=== PATIENT | female | born 1965 | race Caucasian/White ===

== ENCOUNTER 2020-04-14 18:04 | Observation (INO) ==
[2020-04-14] MEDS ORDERED: OPTIRAY 320 125ml IV ONE (18:21)
--- NOTE | 2020-04-14 18:21 | Emergency Department Note ---
History of Present Illness General Chief complaint: Stroke/CVA Symptoms Stated complaint: SLURRED SPEACH, LEFT SIDE WEAKNESS Time Seen by Provider: 04/14/20 18:11 Source: patient and family () Mode of arrival: ambulatory Limitations: no limitations History of Present Illness Maximum Pain Intensity: 0 This patient is a 55-year-old white female who comes in complaining of generalized weakness and malaise. She has had some neck pain and some numbness in her arm that are been going on for several weeks although at 8:00 this morning it was much worse. She laid in bed all day. Her thought her speech seemed more faint than normal. When they tried to walk at 5:00 this evening she seemed weaker than normal. The last known well was 8:00 this morning. She has had no fall or trauma. She is not diabetic. She tells me she had a similar episode was told she had a TIA several years ago. She is on any blood thinners. No chest pain or shortness of breath. No fever or chills. No COVID symptoms or exposure. She has been having some neck pain and she did finish her course of steroids about 2 days ago. She is also been on Ultram and a muscle relaxer though has not taken any today. She was adjusted by a chiropractor a couple days ago as well. No change in bowel or bladder function. After the CAT scan she tells me that her leg feels better than it was and has no numbness or weakness. No syncope. She tells me that she had a TIA about 3 years ago and had passed out at the time. Denies headache. She was recently treated for UTI as well and a rash Home Medications Home Medications Medication Instructions Recorded Confirmed Type omeprazole 40 mg capsule,delayed 40 mg PO QAM #30 cap 08/15/19 04/14/20 Rx release cyclobenzaprine 10 mg tablet 10 mg PO HS PRN #10 tab 04/08/20 04/14/20 Rx prednisone 50 mg tablet 50 mg PO DAILY #5 tab 04/08/20 04/14/20 Rx tramadol 50 mg tablet See Rx Instructions PO Q6H PRN #20 04/08/20 04/14/20 Rx tab Allergies Allergy/AdvReac Type Severity Reaction Status Date / Time doxylamine Allergy Unknown PT CAN'T Verified 04/14/20 19:38 REMEMBER Past Med/Surg History Medical History Acute bronchitis (Inactive) Cough (Inactive) Encounter for pre-operative examination GERD (gastroesophageal reflux disease) High blood pressure History of gastric ulcer Laryngitis (Inactive) Routine health maintenance (Inactive) Transient ischemic attack (TIA) 12/2016--stress induced--no meds Surgical History History of cholecystectomy History of colonoscopy History of esophagogastroduodenoscopy (EGD) History of tooth extraction wisdom teeth Family History Family/Other Breast cancer great grandmother Other Hypertension Denies family history of Ovarian cancer Prostate cancer Myocardial infarction Colorectal cancer Social History Smoking Status: Never smoker Second Hand Exposure: Yes (mother smoked); Hx Alcohol Use: Yes Alcohol type: wine Hx Substance Use: No Preferred Language: Niuean Communication Ability: Effective Sound Printer Required: No Beliefs That Will Affect Care: None marital status: Current Living Situation: Spouse current occupational status: employed Feels Safe at Home: Yes Safety Concerns: Feels Safe At This Time caffeine: Yes Dental Care, Regularly: Yes Physical Activity Frequency: 3-4 Times per Week Seatbelt Use: always Review of Systems A total of 10 systems reviewed and were otherwise negative Physical Exam Vital Signs Vital Signs - 24 hr 04/14/20 18:08 04/14/20 18:25 04/14/20 18:31 Temperature 36.7 C Temperature Source Oral Pulse Rate 72 66 Pulse Rate [Apical] 66 Pulse Rate from SpO2 Sensor 67 Respiratory Rate 20 18 Respiratory Effort / Characteristics Non-Labored Spontaneous Respiratory Depth Normal Blood Pressure 149/81 H Blood Pressure [Right Arm] 169/86 H Blood Pressure Mean 103 Blood Pressure Mean [Right Arm] 113 Pulse Oximetry 99 99 100 Oxygen Delivery Method Room Air Room Air Sepsis Recent Fever Within 48 Hours No Sepsis New/Unexplained Change in Mental Status N/A Sepsis Action Taken by Nursing No Action Required 04/14/20 18:32 04/14/20 18:40 04/14/20 18:45 Temperature Temperature Source Pulse Rate 62 61 60 Pulse Rate [Apical] Pulse Rate from SpO2 Sensor 62 61 61 Respiratory Rate Respiratory Effort / Characteristics Respiratory Depth Blood Pressure 169/86 H 166/86 H Blood Pressure [Right Arm] Blood Pressure Mean 108 108 Blood Pressure Mean [Right Arm] Pulse Oximetry 100 98 100 Oxygen Delivery Method Room Air Sepsis Recent Fever Within 48 Hours Sepsis New/Unexplained Change in Mental Status Sepsis Action Taken by Nursing 04/14/20 18:46 04/14/20 18:50 04/14/20 19:00 Temperature Temperature Source Pulse Rate 63 57 L Pulse Rate [Apical] 61 Pulse Rate from SpO2 Sensor 61 58 L Respiratory Rate 18 15 Respiratory Effort / Characteristics Respiratory Depth Blood Pressure Blood Pressure [Right Arm] 166/86 H Blood Pressure Mean Blood Pressure Mean [Right Arm] 112 Pulse Oximetry 100 100 98 Oxygen Delivery Method Room Air Sepsis Recent Fever Within 48 Hours Sepsis New/Unexplained Change in Mental Status Sepsis Action Taken by Nursing 04/14/20 19:10 04/14/20 19:20 04/14/20 19:30 Temperature Temperature Source Pulse Rate 61 67 58 L Pulse Rate [Apical] Pulse Rate from SpO2 Sensor 59 L 69 64 Respiratory Rate 15 20 20 Respiratory Effort / Characteristics Respiratory Depth Blood Pressure Blood Pressure [Right Arm] Blood Pressure Mean Blood Pressure Mean [Right Arm] Pulse Oximetry 99 99 99 Oxygen Delivery Method Sepsis Recent Fever Within 48 Hours Sepsis New/Unexplained Change in Mental Status Sepsis Action Taken by Nursing 04/14/20 19:34 04/14/20 19:35 04/14/20 19:40 Temperature Temperature Source Pulse Rate 62 65 58 L Pulse Rate [Apical] Pulse Rate from SpO2 Sensor 61 66 58 L Respiratory Rate 23 19 19 Respiratory Effort / Characteristics Respiratory Depth Blood Pressure 136/78 Blood Pressure [Right Arm] Blood Pressure Mean 97 Blood Pressure Mean [Right Arm] Pulse Oximetry 98 97 99 Oxygen Delivery Method Sepsis Recent Fever Within 48 Hours Sepsis New/Unexplained Change in Mental Status Sepsis Action Taken by Nursing 04/14/20 19:50 04/14/20 21:08 Temperature Temperature Source Pulse Rate 61 55 L Pulse Rate [Apical] Pulse Rate from SpO2 Sensor 64 Respiratory Rate 17 17 Respiratory Effort / Characteristics Respiratory Depth Blood Pressure 146/89 H Blood Pressure [Right Arm] Blood Pressure Mean 108 Blood Pressure Mean [Right Arm] Pulse Oximetry 97 Oxygen Delivery Method Sepsis Recent Fever Within 48 Hours Sepsis New/Unexplained Change in Mental Status Sepsis Action Taken by Nursing General: Well developed well nourished middle-aged female in no acute distress, breathing comfortably on room air. Normal speech HEENT: Normal cephalic atraumatic. Pupils are equal round and reactive to light. Extraocular movements are intact. Oropharynx is pink with moist mucous membranes. No swelling of the mouth lips or tongue. Neck: Supple with a midline trachea. No meningeal signs or stiffness, no JVD or bruits. No Stridor. Chest: Clear to auscultation bilaterally. No wheezes or rhonchi. No increased work of breathing. Heart: Regular rate and rhythm without murmurs or gallops. Abdomen: Soft nontender, nondistended without rebound guarding or rigidity. Extremities: No cyanosis clubbing or edema. No calf tenderness or assymetry Spine/Back. Non tender to palpation. No CVA tenderness Skin: Good turgor without rashes. Neurologic exam: Cranial nerves two through 12 are intact. Motor and sensation are intact and symmetrical throughout. She complains of some mild numbness to left arm but has normal full movement. No numbness or weakness the left leg. Course Administered Medications Discontinued Medications Aspirin (Aspirin Chew) 324 mg PO NOW STA Stop: 04/14/20 18:53 Last Admin: 04/14/20 19:01 Dose: 324 mg Documented by: [id number] Sodium Chloride (Nss 1000ml) 1,000 mls @ 125 mls/hr IV .Q8H JEREMIAS Stop: 05/14/20 18:59 Last Infusion: 04/14/20 22:57 Dose: 0 mls/hr Documented by: [id number] Admin: 04/14/20 19:47 Dose: 125 mls/hr Documented by: [id number] Ioversol (Optiray 320 125ml) 119 ml IV ONCE ONE Stop: 04/14/20 18:22 Last Admin: 04/14/20 18:21 Dose: 119 ml Documented by: [id number] Critical Care Time Critical Care Time: Yes Total Critical Care Time: 30 Due to the patient's presentation with strokelike symptoms and need for frequent reassessment, consultation with the stroke neurologist consideration for TPA and intervention and other measures, she was reassessed frequently and placed on a monitored bed and a total of 30 minutes of critical care time was performed. Medical Decision Making Differential Diagnosis Stroke, TIA, infection, electrolyte or metabolic abnormalities, intracranial process, cervical spine disease, Medical Records Attestation: I reviewed the patient's medical records. Home Medications Current Medication List: was personally reviewed by me Laboratory Data Attestation: I reviewed the patient's lab results. Result diagrams: 04/14/20 18:32 04/14/20 18:32 Lab Results 04/14/20 04/14/20 04/14/20 Range/Units 18:32 18:32 18:32 WBC 8.75 (4.8-10.8) K/uL RBC 4.28 (4.2-5.4) M/uL Hgb 14.0 (12.0-16.0) g/dL Hct 40.9 (37-47) % MCV 95.6 (80-100) fL MCH 32.7 (25-34) pg MCHC 34.2 (32-36) g/dL RDW Std Deviation 42.9 (36.4-46.3) fL RDW Coeff of Michael 12.3 (11.5-14.5) % Plt Count 302 (130-400) K/uL MPV 10.9 H (7.4-10.4) fL Immature Gran % (Auto) 0.2 % Neut % (Auto) 45.2 % Lymph % (Auto) 45.9 % [place] % (Auto) 7.1 % Eos % (Auto) 1.4 % Baso % (Auto) 0.2 % Neut # (Auto) 3.95 (1.4-6.5) K/uL Lymph # (Auto) 4.02 H (1.2-3.4) K/uL [place] # (Auto) 0.62 H (0.11-0.59) K/uL Eos # (Auto) 0.12 (0-0.5) K/uL Baso # (Auto) 0.02 (0-0.2) K/uL Immature Gran # (Auto) 0.02 (0.00-0.02) K/uL PT 10.8 (9.0-12.0) Seconds INR 1.0 (0.9-1.1) APTT 28.5 (21.0-31.0) Seconds PTT Ratio 1.0 Sodium 135 L (136-145) mmol/L Potassium 3.8 (3.5-5.1) mmol/L Chloride 101 (98-107) mmol/L Carbon Dioxide 27 (21-32) mmol/L Anion Gap 6.0 (3-11) BUN 14 (7-18) mg/dl Creatinine 1.21 H (0.6-1.2) mg/dl Est Cr Clr Drug Dosing 52.2 ml/min Est GFR ( Amer) 59.2 Est GFR (Non-Af Amer) 51.0 BUN/Creatinine Ratio 11.7 (10-20) Glucose 91 (70-99) mg/dl POC Glucose (70-99) mg/dl Calcium 8.6 (8.5-10.1) mg/dl Magnesium 2.1 (1.8-2.4) mg/dl Total Bilirubin 0.3 (0.2-1) mg/dl AST 14 L (15-37) U/L ALT 23 (12-78) U/L Alkaline Phosphatase 48 (45-117) U/L Troponin I < 0.015 (0-0.045) ng/ml Total Protein 6.6 (6.4-8.2) gm/dl Albumin 3.4 (3.4-5.0) gm/dl Globulin 3.2 (2.5-4.0) gm/dl Albumin/Globulin Ratio 1.1 (0.9-2) Lyme Disease IgG Ab (Negative) Lyme Disease IgM Ab (Negative) 04/14/20 04/14/20 Range/Units 18:33 18:50 WBC (4.8-10.8) K/uL RBC (4.2-5.4) M/uL Hgb (12.0-16.0) g/dL Hct (37-47) % MCV (80-100) fL MCH (25-34) pg MCHC (32-36) g/dL RDW Std Deviation (36.4-46.3) fL RDW Coeff of Michael (11.5-14.5) % Plt Count (130-400) K/uL MPV (7.4-10.4) fL Immature Gran % (Auto) % Neut % (Auto) % Lymph % (Auto) % [place] % (Auto) % Eos % (Auto) % Baso % (Auto) % Neut # (Auto) (1.4-6.5) K/uL Lymph # (Auto) (1.2-3.4) K/uL [place] # (Auto) (0.11-0.59) K/uL Eos # (Auto) (0-0.5) K/uL Baso # (Auto) (0-0.2) K/uL Immature Gran # (Auto) (0.00-0.02) K/uL PT (9.0-12.0) Seconds INR (0.9-1.1) APTT (21.0-31.0) Seconds PTT Ratio Sodium (136-145) mmol/L Potassium (3.5-5.1) mmol/L Chloride (98-107) mmol/L Carbon Dioxide (21-32) mmol/L Anion Gap (3-11) BUN (7-18) mg/dl Creatinine (0.6-1.2) mg/dl Est Cr Clr Drug Dosing ml/min Est GFR ( Amer) Est GFR (Non-Af Amer) BUN/Creatinine Ratio (10-20) Glucose (70-99) mg/dl POC Glucose 98 (70-99) mg/dl Calcium (8.5-10.1) mg/dl Magnesium (1.8-2.4) mg/dl Total Bilirubin (0.2-1) mg/dl AST (15-37) U/L ALT (12-78) U/L Alkaline Phosphatase (45-117) U/L Troponin I (0-0.045) ng/ml Total Protein (6.4-8.2) gm/dl Albumin (3.4-5.0) gm/dl Globulin (2.5-4.0) gm/dl Albumin/Globulin Ratio (0.9-2) Lyme Disease IgG Ab Negative (Negative) Lyme Disease IgM Ab Negative (Negative) Imaging Data Radiologist's Impression: CT head/brain wo con CLINICAL HISTORY: Strokelike symptoms COMPARISON STUDY: No previous studies for comparison. TECHNIQUE: Axial CT of the brain is performed from the vertex to the skull base. IV contrast was not administered for this examination. A dose lowering technique was utilized adhering to the principles of ALARA. CT DOSE: FINDINGS: No intra or extra-axial mass lesions are visualized. There is no CT evidence of acute cortical infarction. There is no evidence of midline shift. There is no acute hemorrhage. No calvarial fractures are visualized. There is no evidence of pathologic ventricular dilatation. There is no evidence of acute sinusitis IMPRESSION: No acute intracranial findings CT angio neck with con CLINICAL HISTORY: Strokelike symptoms COMPARISON STUDY: No previous studies for comparison. TECHNIQUE: CT angiography was performed from the aortic arch to the skull base. MIP imaging was performed. The patient was scanned in a dynamic helical fashion during intravenous administration of 119 cc of Optiray 320. A dose lowering technique was utilized adhering to the principles of ALARA. CT DOSE: Technique: CT angiogram of the carotid and vertebral arteries was obtained using intravenous contrast and 3-D reconstruction. NASCET criteria was utilized. Findings: Incidentally noted is a 4 mm right lobe thyroid nodule. Current recommendations indicate no necessity of follow-up. Average risk patient. The right carotid revealed no evidence of aneurysm and no evidence of dissection. There is no evidence of hemodynamic significant stenosis. The left carotid revealed no evidence of hemodynamic significant stenosis. There is no evidence of aneurysm. There is no evidence of dissection. There is no evidence of hemodynamically significant vertebral stenosis. There is no evidence of vertebral dissection. IMPRESSION: No evidence of hemodynamically significant carotid or vertebral artery stenosis. No evidence of dissection. CT angio head w con CLINICAL HISTORY: Strokelike symptoms TECHNIQUE: CT angiography of the head was performed in a dynamic helical fashion during intravenous administration of 119 cc of Optiray 320. MIP imaging was performed. A dose lowering technique was utilized adhering to the principles of ALARA. CT DOSE: COMPARISON STUDY: No previous studies for comparison. FINDINGS: There are no lesion suspicious for aneurysm. There are no major intracranial branch occlusions. The dural venous sinuses appear patent.. There is a somewhat hypoplastic left A1 segment. This is felt to be developmental. IMPRESSION: Unremarkable CT angiography the brain. ECG Data Attestation: I personally reviewed and interpreted this ECG as follows: Indication: + weakness Rate (beats per minute): 64 Rhythm: + normal sinus ECG Intervals/blocks: + Normal QRS, + Normal QT and + Normal [place] ECG [place]: + Normal ECG ST segments: + Normal ST segments ECG Findings: no PACs and no PVCs Comparison ECG Date: no prior available Blood Pressure Blood Pressure Findings: Elevated blood pressure Blood Pressure Disposition: elevated BP felt to be situational MDM Narrative This patient comes in with generalized weakness. Starting at 8:00 this morning her left arm was much more weak and numb than normal. She also has some difficulty ambulating this evening. She has not felt well for couple days. No fever or chills. Given her symptoms a stroke alert was called. She was taken from triage to the CAT scan her. I briefly looked at her and talk to her in triage. She is not diabetic and she is not on no blood thinners. Her leg is feeling better after the CAT scan. Initial CAT scan was unremarkable. She also do CTA of the head and neck. Given that she was manipulated by chiropractor to make sure there was under that dissection as well. I did discuss the case with Dr. Boucher, the [facility] neurologist, as I called a stroke alert on this patient and talk to her early while the patient was over in CAT scan. She did evaluate her in the emergency department as well. Stroke neurologist does not feel that she needs TPA I agree. It is difficult to say whether this is a TIA/stroke or another nonischemic cause such as disc disease or even something like MS. She has no significant lecture light or metabolic abnormalities. She has nothing to suggest that she has cardiac disease. She was given normal saline IV bolus, and IV fluid while she was here. The stroke neurologist did recommend getting MRIs of the head and neck and doing further work-up. She was also recommended aspirin which was given here as well. She will be admitted/observed for further neurologic work-up. I have consulted the hospitalist for this. Continuous cardiac monitoring: Due to strokelike symptoms she was placed on a continuous live truck technician and order was placed in the electronic medical re cord. She was noted to be in normal sinus rhythm pulse of 72. Impression & Plan Weakness, Stroke-like symptoms, Left arm numbness, Cervical disc disease Discharge Plan Visit Data *Final* Discharge Date/Time: 04/14/20 22:11 Chief Complaint: Stroke/CVA Symptoms Stated Complaint: SLURRED SPEACH, LEFT SIDE WEAKNESS ED Provider: Rudi Park Discharge Problem: Weakness, Stroke-like symptoms, Left arm numbness, Cervical disc disease Patient Disposition: Admitted As Inpatient Discharge Instructions Interventions: ED Discharge Assessment Last Done: 04/14/20 22:11
--- NOTE | 2020-04-14 18:23 | CT Scan Report ---
CT head/brain wo con CLINICAL HISTORY: Strokelike symptoms COMPARISON STUDY: No previous studies for comparison. TECHNIQUE: Axial CT of the brain is performed from the vertex to the skull base. IV contrast was not administered for this examination. A dose lowering technique was utilized adhering to the principles of ALARA. CT DOSE: FINDINGS: No intra or extra-axial mass lesions are visualized. There is no CT evidence of acute cortical infarc tion. There is no evidence of midline shift. There is no acute hemorrhage. No calvarial fractures ar e visualized. There is no evidence of pathologic ventricular dilatation. There is no evidence of acute sinusitis IMPRESSION: No acute intracranial findings ACT 112: Negative or not required by law. Electronically signed by: Hemal De Anda M.D. 04/14/2020 6:22 PM
--- NOTE | 2020-04-14 18:40 | CT Scan Report ---
CT angio neck with con CLINICAL HISTORY: Strokelike symptoms COMPARISON STUDY: No previous studies for comparison. TECHNIQUE: CT angiography was performed from the aortic arch to the skull base. MIP imaging was perfo rmed. The patient was scanned in a dynamic helical fashion during intravenous administration of 119 c c of Optiray 320. A dose lowering technique was utilized adhering to the principles of ALARA. CT DOSE: Technique: CT angiogram of the carotid and vertebral arteries was obtained using intravenous contrast and 3-D reconstruction. NASCET criteria was utilized. Findings: Incidentally noted is a 4 mm right lobe thyroid nodule. Current recommendations indicate no necessity of follow-up. Average risk patient. The right carotid revealed no evidence of aneurysm and no evidence of dissection. There is no evidenc e of hemodynamic significant stenosis. The left carotid revealed no evidence of hemodynamic significant stenosis. There is no evidence of an eurysm. There is no evidence of dissection. There is no evidence of hemodynamically significant vertebral stenosis. There is no evidence of verte bral dissection. IMPRESSION: No evidence of hemodynamically significant carotid or vertebral artery stenosis. No evidence of disse ction. ACT 112: Negative or not required by law. Electronically signed by: Hemal De Anda M.D. 04/14/2020 6:39 PM
[2020-04-14 18:41] LABS: Basophils # (auto) 0.02 K/uL (0-0.2); Basophils % (auto) 0.2 %; Eosinophils # (auto) 0.12 K/uL (0-0.5); Eosinophils % (auto) 1.4 %; Hematocrit (blood only) 40.9 % (37-47); Immature Granulocytes # (auto) 0.02 K/uL (0.00-0.02); Immature Granulocytes % (auto) 0.2 %; Lymphocytes # (auto) 4.02 K/uL (1.2-3.4); Lymphocytes % (auto) 45.9 %; Mean Corpuscular Hemoglobin 32.7 pg (25-34); Mean Corpuscular Hgb Conc 34.2 g/dL (32-36); Mean Corpuscular Volume 95.6 fL (80-100); Mean Platelet Volume 10.9 fL (7.4-10.4); Monocytes # (auto) 0.62 K/uL (0.11-0.59); Monocytes % (auto) 7.1 %; Neutrophils # (auto) 3.95 K/uL (1.4-6.5); Neutrophils % (auto) 45.2 %; Platelet Count 302 K/uL (130-400); RDW Coefficient of Variation 12.3 % (11.5-14.5); RDW Standard Deviation 42.9 fL (36.4-46.3); Red Blood Count 4.28 M/uL (4.2-5.4); White Blood Count 8.75 K/uL (4.8-10.8)
--- NOTE | 2020-04-14 18:43 | CT Scan Report ---
CT angio head w con CLINICAL HISTORY: Strokelike symptoms TECHNIQUE: CT angiography of the head was performed in a dynamic helical fashion during intravenous a dministration of 119 cc of Optiray 320. MIP imaging was performed. A dose lowering technique was util ized adhering to the principles of ALARA. CT DOSE: COMPARISON STUDY: No previous studies for comparison. FINDINGS: There are no lesion suspicious for aneurysm. There are no major intracranial branch occlusi ons. The dural venous sinuses appear patent.. There is a somewhat hypoplastic left A1 segment. This i s felt to be developmental. IMPRESSION: Unremarkable CT angiography the brain. ACT 112: Negative or not required by law. Electronically signed by: Hemal De Anda M.D. 04/14/2020 6:42 PM
[2020-04-14 18:51] LABS: Partial Thromboplastin Time 28.5 Seconds (21.0-31.0); Prothrombin Time 10.8 Seconds (9.0-12.0)
[2020-04-14] MEDS ORDERED: ASPIRIN 81 MG CHEW PO STA (18:52)
[2020-04-14 18:57] LABS: Alanine Aminotransferase 23 U/L (12-78); Albumin Level 3.4 gm/dl (3.4-5.0); Aspartate Aminotransferase 14 U/L (15-37); BUN Creatinine Ratio 11.7 (10-20); Blood Urea Nitrogen 14 mg/dl (7-18); Calcium 8.6 mg/dl (8.5-10.1); Carbon Dioxide 27 mmol/L (21-32); Chloride 101 mmol/L (98-107); Creatinine Clr Calc Pharmacy 52.2 ml/min; Est GFR (African American) 59.2; Glucose 91 mg/dl (70-99); Magnesium 2.1 mg/dl (1.8-2.4); Potassium 3.8 mmol/L (3.5-5.1); Sodium 135 mmol/L (136-145)
[2020-04-14] MEDS ORDERED: SODIUM CHLORIDE 0.9% 1000ML 1,000 ML IV SCH (19:00)
[2020-04-14 19:02] LABS: Albumin Globulin Ratio 1.1 (0.9-2); Alkaline Phosphatase 48 U/L (45-117); Bilirubin,Total 0.3 mg/dl (0.2-1); Globulin 3.2 gm/dl (2.5-4.0); Total Protein 6.6 gm/dl (6.4-8.2); Troponin I < 0.015 ng/ml (0-0.045)
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
[2020-04-14] MEDS ORDERED: ACETAMINOPHEN 325 MG TAB PO PRN (22:43)
[2020-04-14] MEDS ORDERED: ONDANSETRON INJ 2 MG/ML 2 ML VIAL IV PRN (22:43)
[2020-04-14] MEDS ORDERED: ALUMINUM/MAGNESIUM SUSP 30 ML UDC PO PRN (22:43)
[2020-04-14] MEDS ORDERED: PHARMACIST DISCHARGE MED REC CONSULT PRN (22:43)
[2020-04-14 23:27] LABS: Lyme Ab IgG w/WB Rflx Negative (Negative); Lyme Ab IgM w/WB Rflx Negative (Negative)
--- NOTE | 2020-04-14 23:32 | Billing Data ---
Date of Service April 14, 2020 Coding Level of Care Code 69196 Initial Inpt Care Lvl 2
[2020-04-15 04:23] LABS: Appearance Urine Clear (Clear); Bacteria Urine Automated 4+ (Negative); Bilirubin Urine Negative (Negative); Blood Urine Negative (Negative); Cast Urine Automated 0 /lpf (0-5); Color Urine Yellow; Glucose Urine UA Negative (Negative); Ketones Urine Negative (Negative); Leukocyte Esterase Urine Trace (Negative); Nitrite Urine Negative (Negative); Protein Urine Negative (Negative); RBC Urine Automated 0-4 /hpf (0-4); Specific Gravity Urine 1.023 (1.000-1.030); Urobilinogen Urine Negative (Negative); pH Urine 6.5 (4.5-7.5)
[2020-04-15] MEDS ORDERED: GADOBUTROL 65ML VIAL IV ONE (06:09)
--- NOTE | 2020-04-15 07:21 | Magnetic Resonance Report ---
MRI OF THE BRAIN COMBO CLINICAL HISTORY: Strokelike symptoms. COMPARISON STUDY: CT of the brain dated 04/14/2020. TECHNIQUE: MRI of the brain was performed utilizing various T1 and T2-weighted sequences in the axial , sagittal, and coronal planes. Contrast-enhanced sequences were acquired following the administratio n of 7.4 cc of Gadavist. The examination is performed using the multiple sclerosis protocol. FINDINGS: Brain parenchyma: The brain parenchyma is normal in appearance. There is no hemorrhage or mass effect . There is no restricted diffusion to suggest acute ischemia. No enhancing mass lesion is identified on the postcontrast images. Medina-white matter differentiation is preserved. No extra-axial fluid ashley ection is seen. The cerebellar tonsils are normal in configuration. Ventricles, sulci, and cisterns: Normal in configuration. Pituitary and sella: Unremarkable. Intracranial vasculature: Normal flow voids are maintained at the skull base. Orbits: The bony orbits are grossly intact. Orbital contents are normal in appearance. Sinuses and mastoids: Clear. Calvarium: Unremarkable. Cervical cord: Partially visualized cervical spinal cord is normal in morphology and signal intensity . IMPRESSION: No acute intracranial abnormality. ACT 112: Negative or not required by law. Electronically signed by: Ney Smith M.D. 04/15/2020 7:19 AM
--- NOTE | 2020-04-15 07:28 | Magnetic Resonance Report ---
MR cervical spine wo/w con HISTORY: Mental status change stroke work up, concern for MS TECHNIQUE: Multiplanar multisequence MRI of the cervical spine was performed both before and after th e use of intravenous contrast. COMPARISON STUDY: None. FINDINGS: Signal characteristics of the vertebral bodies are unremarkable. Mild degenerative disc sukhjinder nge is noted throughout. Signal characteristics of the cervical cord are within normal limits. Veneer Drier Tailer ior bulging disc components are seen at C4-C5 and C6-C7. C2-C3: No significant central canal or neural foraminal narrowing. C3-C4: No significant central canal or neural foraminal narrowing. C4-C5: Mild broad-based disc bulge. Minimal impact anterior cervical cord. Moderate narrowing right a s well as left neural foramina. C5-C6: Minimal broad-based disc bulge. No impact of the cervical cord. C6-C7: Broad-based central disc herniation. Minimal impact anterior cervical cord. Neural foramina re main patent. C7-T1: No significant central canal or neural foraminal narrowing. IMPRESSION: 1. Mild broad-based disc herniation C6-C7 with minimal impact upon the anterior cervical cord. 2. Mild broad-based disc bulge C4-C5 with moderate narrowing of the right and to a lesser extent left neural foramina. 3. Normal signal characteristics of the cervical cord. 4. No abnormal postcontrast enhancement ACT 112: Negative or not required by law. The above report was generated using voice recognition software. It may contain grammatical, syntax or spelling errors. Electronically signed by: Allan Bishop M.D. 04/15/2020 7:26 AM
[2020-04-15 08:41] LABS: Basophils # (auto) 0.01 K/uL (0-0.2); Basophils % (auto) 0.1 %; Eosinophils # (auto) 0.09 K/uL (0-0.5); Eosinophils % (auto) 1.2 %; Hematocrit (blood only) 43.1 % (37-47); Hemoglobin 15.2 g/dL (12.0-16.0); Immature Granulocytes # (auto) 0.01 K/uL (0.00-0.02); Immature Granulocytes % (auto) 0.1 %; Lymphocytes % (auto) 25.9 %; Mean Corpuscular Hemoglobin 33.3 pg (25-34); Mean Corpuscular Hgb Conc 35.3 g/dL (32-36); Mean Corpuscular Volume 94.5 fL (80-100); Mean Platelet Volume 11.1 fL (7.4-10.4); Monocytes # (auto) 0.81 K/uL (0.11-0.59); Monocytes % (auto) 10.5 %; Neutrophils # (auto) 4.79 K/uL (1.4-6.5); Neutrophils % (auto) 62.2 %; Platelet Count 291 K/uL (130-400); RDW Coefficient of Variation 12.3 % (11.5-14.5); RDW Standard Deviation 42.1 fL (36.4-46.3); Red Blood Count 4.56 M/uL (4.2-5.4); White Blood Count 7.71 K/uL (4.8-10.8)
[2020-04-15] MEDS ORDERED: ASPIRIN 81 MG ECTAB PO SCH (09:00)
[2020-04-15 09:10] LABS: BUN Creatinine Ratio 12.7 (10-20); Calcium 9.3 mg/dl (8.5-10.1); Creatinine Clr Calc Pharmacy 61.6 ml/min; Est GFR (African American) 72.7; Est GFR (Non-African American) 62.8
[2020-04-15 09:44] LABS: Estimated Average Glucose 105 mg/dl; Hemoglobin A1C 5.3 % (4.5-5.6)
--- NOTE | 2020-04-15 10:25 | Medical Student Progress Note ---
Date of Service April 15, 2020 Assessment & Plan (1) Weakness: Assessment: Mrs. Wagner is a 55-year-old female with a history of HTN, GERD, and TIA in 2017 who presented yesterday, 04/14, to the ED with concerns of left-sided weakness who is now hospitalization day #1 for work-up of stroke-like symptoms. Left upper extremity weakness Head CT: No acute intracranial findings. Neck CTA: No evidence of hemodynamically significant carotid or vertebral ar jaylyn stenosis. No evidence of dissection. Head CTA: Unremarkable CT angiography the brain. Brain MRI: No acute intracranial abnormality. -Cervical MRI: Mild broad-base herniation of C6-C7 with a minimal impact on the anterior cervical cord; Mild C4-C5 disc bulge with moderate narrowing of the right and less so left neural foramina. - Given these findings, as well as timing of the attack and lack of facial symptoms, this is likely not a cardiovascular event. Lyme serology negative. - No metabolic derangements appreciated. - Given results of imaging, muscular tenderness, and later onset of radicular symptoms, this is most likely an MSK strain with a superimposed radiculopathy as a result of chiropractic adjustment. Given lack of CVA and the fact that lipid and A1c are in range with a ASCVD 10- year risk of 1.8%, ASA should be discontinued and there is no need for statin therapy at this time. Patient should hold tramadol at home and only utilize cyclobenzaprine as needed. Utilize acetaminophen and ibuprofen as well as ice for symptomatic relief. - Follow up with PCP and PT as an outpatient. Appreciate neurology consult. FEN/GI: Heart healthy diet. Patient passed bedside swallow DVT prophylaxis: Deferring any chemoprophylaxis, SCDs Full code Dispo: D/C Supervising Attestation I personally examined the patient and verified all jean-baptiste points of history and exam, discussed case, and agree with decision making with Gopi Sandoval MS3. see discharge summary, otherwise as above Subjective Ms. Wagner did well overnight. She is at baseline in terms of mental status but continues to have concerns of left-sided neck pain and loss of sensation in the first 3 fingers of the left hand. She describes this as a sensation of her hand being 'swollen.' She is otherwise feeling well and her malaise and fatigue is much improved since yesterday, 8/2. She is ambulating well. She has no concerns in terms of urination, defecation, or alimentation. Review of Systems Review of Systems: All systems reviewed & are unremarkable except as noted in HPI & below Physical Exam Constitutional: WD/WN, vitals as above well developed, well nourished, well groomed and comfortable Eyes: PERRL, conjunctivae normal, anicteric sclerae ENMT: external ear and nose normal, oropharynx normal Neck: normal visual inspection and trachea midline Respiratory: normal respiratory effort, lungs clear to auscultation no cough Cardiovascular: RRR, no murmur, no edema Heart Sounds: normal S1 and normal S2 Extremities: normal capillary refill; no edema Chest (Breasts): Additional Comments: Not examined. Gastrointestinal (Abdomen): normal bowel sounds, soft, nontender, no hepatosplenomegaly Musculoskeletal: Head/Neck/Chest: normocephalic and head atraumatic Spine: + paraspinal tenderness Extremities: + abnormal strength (Strength diffusely reduced in the the left upper extremity to 4/5); full ROM of extremities Gait: normal gait No edema or erythema of the hands. Tenderness of the L trapezius. Skin: no rashes, warm and dry Neurologic: CN's II-XI intact bilaterally, deep tendon reflexes 2+ bilaterally, moves all extremities and awake; no focal motor deficits and not confused Speech / Cognition: normal speech Motor/Sensory: + sensory deficit (reduced sensation to light touch over the first three digits of the L hand) Coordination: normal rapid alternating movements Psychiatric: A+Ox3, euthymic affect Genitourinary: Not examined. Results & Data ([facility]) Vital Signs (Past 12 Hours) Vital Signs Temp Pulse Pulse Resp BP Pulse Ox 04/15/20 02:00 48 L 04/14/20 23:59 36.5 C 52 L 18 142/82 H 97 04/14/20 22:37 36.6 C 100 H 16 156/81 H 96 Telemetry: HR in the 50s-70s overnight with a minimum of 39 bpm. Today HR: 50- 80s. No arrhythmias appreciated. Pertinent Labs: Na+: 137 Cr: 1.02 HbA1c: 5.3 Cholesterol: 206 Triglycerides: 100 LDL: 122 HDL: 64 Lyme Serology: Negative Imaging: Head CT: No acute intracranial findings Neck CTA: No evidence of hemodynamically significant carotid or vertebral artery stenosis. No evidence of dissection Head CTA: Unremarkable CT angiography the brain Brain MRI: No acute intracranial abnormality. Cervical MRI: Mild broad-base herniation of C6-C7 with a minimal impact on the anterior cervical cord; Mild C4-C5 disc bulge with moderate narrowing of the right and less so left neural foramina. Echo: Normal left ventricular systolic function, no significant valvular dysfunction. Patent foramen ovale present.
--- NOTE | 2020-04-15 13:09 | Neurology Consultation ---
Date of Consultation April 15, 2020 Assessment & Plan (1) Stroke-like symptoms: James Wagner is a 55 yo woman w/ PMH of GERD, HTN and possible TIA in 2017 in the setting of severe stress who p/t [facility] after acute onset of generalized weakness, malaise, hypophonia, worsening left sided weakness and slurred speech. # Stroke-like symptoms: All symptoms resolved at this time except for ongoing neck pain and tingling in her left hand. Believe that her tingling is most likely due to mild neuroforaminal stenosis seen on her MRI C-spine. The overall lethargy and generalized weakness is likely due to UTI given her symptoms and urinalysis. -Recommend treating UTI per primary team -Recommend outpatient physical therapy for her neck pain associated with radicular symptoms in her left hand -If no improvement of her left hand symptoms with PT, can be seen again in the neurology clinic and consider treatment with gabapentin or Cymbalta #Hypertension: Has been persistently hypertensive since admission. Recommend starting antihypertensive such as lisinopril. Given echo findings, she may want to start with a baby aspirin 81 mg daily as well. Thank you for this interesting consult. Plan of care discussed with primary team. Please call or text with questions. (2) Left arm numbness: (3) Cervical disc disease: History of Present Illness Attending Physician: Eulalio Anton DO History of Present Illness James Wagner is a 55 yo woman w/ PMH of GERD, HTN and possible TIA in 2017 in the setting of severe stress who p/t [facility] after acute onset of generalized weakness, malaise, hypophonia, worsening left sided weakness and slurred speech. Last seen well 8 AM on 04/14/2020. In the ED, she was afebrile, BP 149/81, heart rate 72, respiratory rate 20, satting 99% on room air. Labs notable for WBC 8.75, hemoglobin 14, platelets 302, sodium mildly low at 135, potassium 3.8, creatinine mildly elevated at 1.21, glucose 91, INR 1.0, calcium/magnesium within normal, LFTs within normal, troponin negative, Lyme negative. UA showed 4+ bacteria, 10-30 whites, trace leukoesterase, negative nitrites and 10-20 epithelial cells; urine culture pending. Imaging independently reviewed. CT head shows no hemorrhage or hypodensity. CTA head and neck shows no LVO, high-grade stenosis or aneurysm; incidentally noted hypoplastic left cervical ICA. MRI brain shows no acute or chronic infarcts, Chiari malformation, tumor or significant small vessel disease. MRI cervical spine shows mild disc herniations at C4-C5 and C6-C7 with no significant cervical stenosis and moderate neuroforaminal stenosis noted bilaterally at C4-C5. Echo showed EF 50 to 55%, grade 1 diastolic dysfunction, no significant valvular abnormalities, PFO present. On examination today, she reports that her symptoms have significantly improved. She reports that she has not been feeling well for the last few days and noticed increased urinary frequency and urgency. She has had neck pain for about the last 6 weeks and has seen a chiropractor for it without significant improvement. Notes that she has had numbness and tingling predominantly in her left hand third through fifth digits. Yesterday, she reports that she was overall lethargic, ate only breakfast on rest and the rest of the day and was concerned given history of possible TIA in the past, prompting presentation to the hospital. Allergies Allergy/AdvReac Type Severity Reaction Status Date / Time doxylamine Allergy Unknown PT CAN'T Verified 04/14/20 19:38 REMEMBER Home Medications Home Medications Medication Instructions Recorded Confirmed Type omeprazole 40 mg capsule,delayed 40 mg PO QAM #30 cap 08/15/19 04/14/20 Rx release cyclobenzaprine 10 mg tablet 10 mg PO HS PRN #10 tab 04/08/20 04/14/20 Rx prednisone 50 mg tablet 50 mg PO DAILY #5 tab 04/08/20 04/14/20 Rx tramadol 50 mg tablet See Rx Instructions PO Q6H PRN #20 04/08/20 04/14/20 Rx tab Patient History Medical History Acute bronchitis (Inactive) Cough (Inactive) Encounter for pre-operative examination GERD (gastroesophageal reflux disease) High blood pressure History of gastric ulcer Laryngitis (Inactive) Routine health maintenance (Inactive) Transient ischemic attack (TIA) 12/2016--stress induced--no meds Surgical History History of cholecystectomy History of colonoscopy History of esophagogastroduodenoscopy (EGD) History of tooth extraction wisdom teeth Family History Family/Other Breast cancer great grandmother Other Hypertension Denies family history of Ovarian cancer Prostate cancer Myocardial infarction Colorectal cancer Social History Smoking Status: Never smoker Second Hand Exposure: Yes (mother smoked); Hx Alcohol Use: Yes Alcohol type: wine Hx Substance Use: No Preferred Language: [place] Communication Ability: Effective 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 Exam (Neuro) Physical Exam: General Exam: GEN: NAD, sitting in chair. HEENT: No conjunctival injection, no rhinorrhea. CV: RRR, no peripheral edema PULM: Nonlabored respirations on room air. Neuro Exam: MS: Awake and Alert. Oriented to person, place, and date. Speech fluent and appropriate without dysarthria or paraphasic errors. Language intact including naming, comprehension, repetition. Cognition and memory grossly intact. Attention intact. No neglect. CN: Visual ramirez full. No extinction to double simultaneous stimuli. No optic disc edema on fundoscopic exam. PERRLA OU. EOMI without nystagmus. Facial sensation intact to LT. Facial muscles full and symmetric. Hearing intact to conversation. Uvula midline with symmetric palatal elevation. Shoulder shrug normal. Tongue midline. MOTOR: Normal bulk and tone. No pronator drift. BUE strength 5/5 at deltoids, biceps, triceps, wrist flexors and extensors, and hand grasp bilaterally. BLE strength 5/5 at iliopsoas, hamstrings, quadriceps, tibialis anterior, and gastrocnemius bilaterally. REFLEXES: 2+ at biceps, triceps, brachioradialis, 2+ patella and 1+ Achilles bilaterally. Flexor plantar responses bilaterally. SENSORY: Intact to LT without extinction to double simultaneous stimuli. Vibration intact throughout. COORDINATION: No dysmetria or ataxia on kjorrk-lx-jifx and ntle-vo-rcqx bilaterally. Normal Tr bilaterally. GAIT: Deferred given physical status Results & Data ([facility]) Vital Signs (Past 12 Hours) Vital Signs Temp Pulse Pulse Resp BP Pulse Ox 04/15/20 11:46 36.9 C 63 18 149/86 H 98 04/15/20 02:00 48 L PG Care Time/CCT Total # of Minutes Spent Total Time Spent with Patient: Total time spent is greater than 50% in coordination of care (as documented) at patient's floor/unit and/or counseling patient: Coding Level of Care Code 70465 Inpt Consult Level 5 Diagnoses Stroke-like symptoms R29.90 Left arm numbness R20.0 Cervical disc disease M50.90
--- NOTE | 2020-04-15 14:30 | XCELERA ---
[id number]
[2020-04-15] MEDS ORDERED: STROKE PATIENT DISCHARGE STA (16:26)
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
--- NOTE | 2020-04-15 17:47 | Electrocardiogram Report ---
Test Reason : Blood Pressure : / mmHG Vent. Rate : 064 BPM Atrial Rate : 064 BPM P-R Int : 150 ms QRS Dur : 092 ms QT Int : 424 ms P-R-T Axes : 015 032 033 degrees QTc Int : 437 ms Normal sinus rhythm Normal ECG No previous ECGs available Confirmed by Magnus Ty ([id number]) on 04/15/2020 5:46:44 PM Referred By: REFERRED SELF Confirmed By:Yayo Ty
--- NOTE | 2020-04-15 17:53 | Electrocardiogram Report ---
Test Reason : Blood Pressure : / mmHG Vent. Rate : 053 BPM Atrial Rate : 053 BPM P-R Int : 146 ms QRS Dur : 088 ms QT Int : 438 ms P-R-T Axes : 034 042 044 degrees QTc Int : 410 ms Sinus bradycardia Otherwise normal ECG When compared with ECG of 14-APR-2020 18:30, (unconfirmed) No significant change was found Confirmed by Magnus Ty ([id number]) on 04/15/2020 5:52:56 PM Referred By: REFERRED SELF Confirmed By:Yayo Ty
--- NOTE | 2020-04-15 18:02 | Billing Data ---
Date of Service April 15, 2020 Coding Level of Care Code D/C Day Management >30 mins
== END 2020-04-15 17:43 | disposition home or self-care (01) ==
LOC: ED 18:04 → INTOOBSV 21:27 → SUATTDRO 21:27 → 2N 21:27